=== PATIENT | male | born 1940 | race African-American/Black ===

== ENCOUNTER 2018-02-08 10:21 | Observation (INO) ==
[2018-02-08 11:16] LABS: Basophils % 0.6 % (0.0-0.8); Eosinophils # 0.2 10*3/uL (0.0-0.87); Eosinophils % 2.8 % (0.00-10.9); Hematocrit 32.9 VOL% (42.0-52.0); Hemoglobin 10.3 GM/DL (14.0-18.0); Immature Granulocytes % 0.3 %; Immature Granulocytes Absolute 0.02 #; Lymphocytes # 1.3 10*3/uL (1.4-4.0); Lymphocytes % 20.4 % (21.2-54.2); Mean Corpuscular HGB Conc 31.3 GM/DL (32-36); Mean Corpuscular Hemoglobin 23 PG (27-34); Mean Corpuscular Volume 73.9 FL (87-102); Monocytes # 0.8 10*3/uL (0.11-0.8); Monocytes % 12.3 % (1.7-12.7); Neutrophils # 4.1 10*3/uL (1.4-7.4); Neutrophils % 63.6 % (38.7-73.9); Platelet Count 181 T/CUMM (130-400); Red Blood Count 4.45 MC/CUMM (3.8-5.5); Red Cell Distribution Width 20.5 % (9.3-17.3); White Blood Count 6.5 T/CUMM (4-12)
[2018-02-08 11:30] LABS: Albumin 3.1 G/DL (3.4-5.0); Bilirubin,Total 0.5 MG/DL (0.2-1.0); Calcium 8.3 MG/DL (8.5-10.1); Osmolality,Calculated 284.3 MOS/KG (273-304); Potassium 3.8 MMOL/L (3.5-5.1); Total Protein 6.3 G/DL (6.4-8.3)
[2018-02-08] MEDS ORDERED: cefTRIAXone 1,000 MG in SODIUM CHLORIDE 0.9% 100 ML IV STA (11:59)
[2018-02-08] MEDS ORDERED: ALBUTEROL/IPRATROPIUM 3 ML NEB RESP TX STA (11:59)
[2018-02-08] MEDS: ALBUTEROL/IPRATROPIUM 3 ML NEB RESP TX SCH ×2 (12:02→19:15)
[2018-02-08] MEDS ORDERED: ALBUTEROL 2.5 MG/3 ML NEB RESP TX PRN (12:48)
[2018-02-08 14:18] LABS: Anisocytosis 1+; Hypochromasia 1+; Microcytosis 2+; Ovalocytes Few; Poikilocytosis 1+; Polychromasia Few; Schistocytes Slight; Target Cells Few
[2018-02-08 14:19] LABS: Platelet Estimate Adequate
[2018-02-08] MEDS: guaiFENesin/DM ER 600-30 MG TABLET PO SCH (20:39)
[2018-02-09] MEDS: ALBUTEROL/IPRATROPIUM 3 ML NEB RESP TX SCH ×4 (00:29→19:42)
[2018-02-09 05:07] LABS: Basophils % 0.5 % (0.0-0.8); Eosinophils # 0.2 10*3/uL (0.0-0.87); Eosinophils % 2.7 % (0.00-10.9); Hematocrit 29.9 VOL% (42.0-52.0); Hemoglobin 9.3 GM/DL (14.0-18.0); Immature Granulocytes % 0.2 %; Immature Granulocytes Absolute 0.01 #; Lymphocytes # 1.4 10*3/uL (1.4-4.0); Lymphocytes % 24.1 % (21.2-54.2); Mean Corpuscular HGB Conc 31.1 GM/DL (32-36); Mean Corpuscular Hemoglobin 23 PG (27-34); Mean Corpuscular Volume 73.1 FL (87-102); Monocytes # 0.8 10*3/uL (0.11-0.8); Monocytes % 13.7 % (1.7-12.7); Neutrophils # 3.4 10*3/uL (1.4-7.4); Neutrophils % 58.8 % (38.7-73.9); Platelet Count 131 T/CUMM (130-400); Red Blood Count 4.09 MC/CUMM (3.8-5.5); White Blood Count 5.9 T/CUMM (4-12)
[2018-02-09 05:26] LABS: Osmolality,Calculated 279.4 MOS/KG (273-304); Potassium 3.5 MMOL/L (3.5-5.1)
[2018-02-09 07:35] LABS: Ovalocytes 2+; Target Cells Few
[2018-02-09 07:36] LABS: Hypochromasia 2+; Platelet Estimate Adequate
[2018-02-09] MEDS: guaiFENesin/DM ER 600-30 MG TABLET PO SCH ×2 (08:50→21:09)
[2018-02-09] MEDS: cefTRIAXone 1,000 MG in SYRINGE 1 EACH IV SCH (08:50)
[2018-02-09] MEDS ORDERED: METOPROLOL TARTRATE 50 MG TABLET PO SCH (10:00)
[2018-02-09] MEDS: ALLOPURINOL 300 MG TABLET PO SCH (10:42)
[2018-02-09] MEDS: SPIRONOLACTONE 50 MG TABLET PO SCH (10:42)
[2018-02-09] MEDS: LOSARTAN 50 MG TABLET PO SCH (10:42)
[2018-02-09] MEDS: PANTOPRAZOLE 40 MG TABLET PO SCH (10:43)
[2018-02-09] MEDS: AZITHROMYCIN INJ 500 MG in SODIUM CHLORIDE 0.9% 250 ML IV SCH (14:48)
[2018-02-09] MEDS ORDERED: ASPIRIN EC 81 MG TABLET PO SCH (21:00)
[2018-02-09] MEDS ORDERED: ZALEPLON 5 MG CAPSULE PO SCH (21:00)
[2018-02-09] MEDS: CARVEDILOL 3.125 MG TABLET PO SCH (21:09)
[2018-02-10] MEDS: ALBUTEROL/IPRATROPIUM 3 ML NEB RESP TX SCH ×4 (00:15→20:12)
[2018-02-10] MEDS ORDERED: OMEGA 3 ACID ETHYL ESTERS 1 GM CAPSULE PO SCH (09:00)
[2018-02-10] MEDS ORDERED: COLCHICINE 0.6 MG TABLET PO SCH (09:00)
[2018-02-10] MEDS ORDERED: CYANOCOBALAMIN 500 MCG TABLET PO SCH (09:00)
[2018-02-10] MEDS: LOSARTAN 50 MG TABLET PO SCH (10:33)
[2018-02-10] MEDS: ALLOPURINOL 300 MG TABLET PO SCH (10:33)
[2018-02-10] MEDS: DOXAZOSIN 1 MG TABLET PO SCH ×2 (10:33→10:48)
[2018-02-10] MEDS: SPIRONOLACTONE 50 MG TABLET PO SCH (10:34)
[2018-02-10] MEDS: guaiFENesin/DM ER 600-30 MG TABLET PO SCH ×2 (10:34→18:45)
[2018-02-10] MEDS: CARVEDILOL 3.125 MG TABLET PO SCH ×3 (10:34→18:45)
[2018-02-10] MEDS: cefTRIAXone 1,000 MG in SYRINGE 1 EACH IV SCH ×2 (10:34→16:40)
[2018-02-10] MEDS: PANTOPRAZOLE 40 MG TABLET PO SCH (10:34)
[2018-02-10] MEDS: AZITHROMYCIN INJ 500 MG in SODIUM CHLORIDE 0.9% 250 ML IV SCH ×2 (10:35→16:40)
[2018-02-10 16:40] VITALS: BP 175/113
== END 2018-02-10 19:19 | disposition left against medical advice (07) ==
LOC: N.ED 10:21 → N.EDINP 12:23 → INTOOBSV 13:16 → N.2E 13:25
PROVIDERS: ADMIT Internal Medicine; ATTEND Internal Medicine